=== PATIENT | male | born 1950 | race Caucasian/White ===

== ENCOUNTER 2023-07-12 06:25 | Day surgery (SDC) | payer OTHER, MEDICARE ==
[2023-07-07 10:35] VITALS: BMI 30.9
[2023-07-12] MEDS ORDERED: TETRACAINE 0.5% OPHTH SOLN 2 ML BOTTLE ONE ×2 (07:13→07:31)
[2023-07-12] MEDS ORDERED: LIDOCAINE 1% P/F 10 MG/ML VIAL ONE (07:13)
[2023-07-12] MEDS ORDERED: BSS (NA/CA/MG/K) BALANCED SALT SOLUTION OPHTH SOLN 15 ML BOTTLE ONE ×2 (07:13→07:31)
[2023-07-12] MEDS ORDERED: CARBACHOL 0.01% INTRA-OCULAR 1.5 ML VIAL ONE (07:14)
[2023-07-12] MEDS ORDERED: LIDOCAINE 1%/EPI 1:100000 (50 ML MULTI DOSE VIAL) ONE (07:14)
[2023-07-12] MEDS ORDERED: NEO/POLYMYX B SULF/DEXAMETH OPHTHALMIC 5ML BOTTLE ONE (07:14)
[2023-07-12] MEDS ORDERED: MIDAZOLAM HCL 2 MG/2 ML SINGLE DOSE VIAL ONE (08:01)
[2023-07-12] MEDS ORDERED: SUCCINYLCHOLINE CHLORIDE 200 MG/10 ML SYRINGE ONE (08:01)
[2023-07-12] MEDS ORDERED: PROPOFOL 20 ML ONE (08:02)
[2023-07-12] MEDS ORDERED: KETOROLAC TROMETHAMINE 30 MG/1 ML VIAL ONE (08:09)
[2023-07-12] MEDS ORDERED: BACITRACIN/POLYMYXIN OPH OINT 3.5 GM TUBE ONE (08:19)
[2023-07-12 08:49] VITALS: TEMP 97.2
[2023-07-12 09:19] VITALS: BP 145/84; PULSE 71; RESP 18
== END 2023-07-12 09:24 | disposition home or self-care (01) ==
LOC: FASU 06:25
PROVIDERS: ATTEND Ophthalmology
PROC: 08QTXZZ Repair Left Conjunctiva, External Approach (ICD-10-PCS; principal; 2023-07-12 08:15)
DX: H11.002 Unspecified pterygium of left eye (principal)

== ENCOUNTER 2023-09-06 08:59 | Day surgery (SDC) | payer OTHER, MEDICARE ==
[2023-08-31 14:28] VITALS: BMI 31.2
[2023-09-06] MEDS: CYCLOPENTOLATE 2% OPHTH SOLN 2 ML BOTTLE ONE (09:35)
[2023-09-06] MEDS: TROPICAMIDE 1% OPHTH SOLN 15 ML BOTTLE ONE (09:35)
[2023-09-06] MEDS: PHENYLEPHRINE 2.5% OPTHALMIC DROP 2ML BOTTLE ONE (09:35)
[2023-09-06] MEDS: CIPROFLOXACIN 0.3% EYE DROPS 5 ML BOTTLE ONE (09:35)
[2023-09-06 09:43] VITALS: RESP 16
[2023-09-06] MEDS ORDERED: TETRACAINE 0.5% OPHTH SOLN 2 ML BOTTLE ONE (10:01)
[2023-09-06] MEDS ORDERED: BSS (NA/CA/MG/K) BALANCED SALT SOLUTION OPHTH SOLN 15 ML BOTTLE ONE (10:01)
[2023-09-06] MEDS ORDERED: LIDOCAINE 1% P/F 10 MG/ML VIAL ONE (10:01)
[2023-09-06] MEDS ORDERED: NEO/POLYMYX B SULF/DEXAMETH OPHTHALMIC 5ML BOTTLE ONE (10:01)
[2023-09-06] MEDS ORDERED: CARBACHOL 0.01% INTRA-OCULAR 1.5 ML VIAL ONE (10:01)
[2023-09-06] MEDS ORDERED: MIDAZOLAM HCL 2 MG/2 ML SINGLE DOSE VIAL ONE (10:41)
[2023-09-06 11:54] VITALS: BP 117/72; TEMP 98.1
[2023-09-06 12:13] VITALS: PULSE 61
== END 2023-09-06 12:13 | disposition home or self-care (01) ==
LOC: FASU 08:59
PROVIDERS: ATTEND Ophthalmology
PROC: 08RK3JZ Replacement of Left Lens with Synthetic Substitute, Percutaneous Approach (ICD-10-PCS; principal; 2023-09-06 11:17)
DX: H26.8 Other specified cataract (principal)
CPT/HCPCS: 66984; V2632